=== PATIENT | male | born 1955 | race Caucasian/White ===

== ENCOUNTER → 2018-04-14 | Outpatient (CLI) | payer MEDICARE ==
--- NOTE | 2018-04-14 10:26 | XR ---
EXAMINATION TYPE: XR chest 2V DATE OF EXAM: 04/14/2018 COMPARISON: NONE TECHNIQUE: PA and lateral views submitted. HISTORY: Shortness of breath FINDINGS: The lungs are clear and there is no pneumothorax, pleural effusion, or focal pneumonia. Bilateral p leural-based thickening. No pneumothorax. Atherosclerotic change aorta. Right paratracheal soft tissu e thickening is present. Hypertrophic and degenerative change of the spine. No overt failure. IMPRESSION: 1. Bilateral pleural-based thickening with no evidence of interstitial edema or consolidative process . Right paratracheal soft tissue fullness could be related to ectatic vasculature. Recommend follow-u p CT of the chest.
== END | disposition home or self-care (01) ==
LOC: RADXRYALE 10:06
PROVIDERS: ATTEND Family Medicine
DX: J92.9 Pleural plaque without asbestos (principal)
CPT/HCPCS: 71046

== ENCOUNTER → 2018-04-21 | Outpatient (CLI) | payer MEDICARE ==
--- NOTE | 2018-04-21 12:53 | ECHOF ---
Referral Reason:R94.31Abnormal electrocardiogram [ECG] [EKG] MEASUREMENTS -------- HEIGHT: 180.3 cm WEIGHT: 149.7 kg BP: 152/70 RVIDd: 4.2 cm (< 3.3) IVSd: 1.6 cm (0.6 - 1.1) LVIDd: 5.8 cm (3.9 - 5.3) LVPWd: 1.3 cm (0.6 - 1.1) IVSs: 2.0 cm LVIDs: 3.7 cm LVPWs: 1.7 cm LA Diam: 3.9 cm (2.7 - 3.8) LAESV Index (A-L): 27.18 ml/m Ao Diam: 4.2 cm (2.0 - 3.7) AV Cusp: 2.5 cm (1.5 - 2.6) EPSS: 0.8 cm MV E Ezequiel: 0.79 m/s MV DecT: 319 ms MV A Ezequiel: 0.88 m/s MV E/A Ratio: 0.90 RAP: 5.00 mmHg RVSP: 32.41 mmHg MV EF SLOPE: 56.03 mm/s (70 - 150) MV EXCURSION: 1.62 cm (> 18.000) FINDINGS -------- Sinus rhythm with extra systolic beats. This was a technically difficult study with suboptimal views. The left ventricular size is normal. There is moderate concentric left ventricular hypertrophy. O verall left ventricular systolic function is normal with, an EF between 55 - 60 %. The right ventricle is severely enlarged. Normal LA size by volume 22+/-6 ml/m2. The right atrium is normal in size. 3 ml of Lumason was utilized for enhancement of images. There is moderate aortic valve sclerosis. Mild mitral annular calcification present. Mild tricuspid regurgitation present. Right ventricular systolic pressure is normal at < 35 mmHg. There is no pulmonic regurgitation present. The aortic root is dilated measuring 4.2cm. IVC Not well visulized. There is no pericardial effusion. CONCLUSIONS -------- 1. Sinus rhythm with extra systolic beats. 2. This was a technically difficult study with suboptimal views. 3. The left ventricular size is normal. 4. There is moderate concentric left ventricular hypertrophy. 5. Overall left ventricular systolic function is normal with, an EF between 55 - 60 %. 6. The right ventricle is severely enlarged. 7. Normal LA size by volume 22+/-6 ml/m2. 8. The right atrium is normal in size. 9. 3 ml of Lumason was utilized for enhancement of images. 10. There is moderate aortic valve sclerosis. 11. Mild mitral annular calcification present. 12. Mild tricuspid regurgitation present. 13. Right ventricular systolic pressure is normal at < 35 mmHg. 14. There is no pulmonic regurgitation present. 15. The aortic root is dilated measuring 4.2cm. 16. IVC Not well visulized. 17. There is no pericardial effusion. [employer] SUPERVISOR: OSMAN Birch
== END | disposition home or self-care (01) ==
LOC: RADECHMAIN 08:27
PROVIDERS: ATTEND Family Medicine
DX: I07.1 Rheumatic tricuspid insufficiency (principal); I11.9 Hypertensive heart disease without heart failure
CPT/HCPCS: C8929; Q9950; 93306

== ENCOUNTER → 2018-04-29 | Outpatient (CLI) | payer MEDICARE ==
--- NOTE | 2018-04-29 10:58 | CT ---
EXAMINATION TYPE: CT chest wo con DATE OF EXAM: 04/29/2018 COMPARISON: Chest x-ray April 14, 2018 HISTORY: Abnormal findings of lung. Abnormal x-ray. CT DLP: 638.9 mGycm. Automated Exposure Control for Dose Reduction was Utilized. TECHNIQUE: CT scan of the thorax is performed without IV contrast. FINDINGS: LUNGS: Areas of suspected pleural thickening on x-ray correspond to fat density extending deep to the intercostal margins on CT. No suspicious pleural effusion effusion or eccentric pleural thickening i s seen. There are some focal prominence of fat also along the left major fissure axial image 43 in th e anterior left lower lung. There is patchy left basilar linear scarring and/or atelectasis posterior ly. There is no suspicious parenchymal nodule or mass. No suspicious focal consolidation is seen. No pneumothorax is noted. Tracheobronchial tree is patent. MEDIASTINUM: Lack of IV contrast is noted to limit evaluation for mediastinal and especially hilar ad enopathy. There are no definitive greater than 1 cm hilar or mediastinal lymph nodes. No suspicious m ass or adenopathy right paratracheal region is seen to account for chest x-ray abnormality. Ectatic c ourse to the right brachiocephalic artery is noted. No cardiomegaly or pericardial effusion is seen. There is moderate coronary artery calcification which is noted risk factor for coronary artery diseas e. There is suspected stent in the distal left circumflex axial image 45. There is mild to moderate c alcified plaque of the aorta. OTHER: Small size hiatal hernia is present. Dependent small gallstone in gallbladder axial image 70. Mild fat replaced atrophy of head and uncinate process of pancreas. S-shaped scoliosis with moderate to severe multilevel spurring and disc space narrowing. There is suspected healing fracture of the an terolateral right fourth rib axial image 26. IMPRESSION: 1. No suspicious mass or adenopathy is seen to account for abnormal chest x-ray, ectatic vasculature is confirmed. 2. Suspected healing fracture anterolateral right fourth rib, correlate clinically.
== END | disposition home or self-care (01) ==
LOC: RADCTMAIN 07:36
PROVIDERS: ATTEND Family Medicine
DX: I77.89 Other specified disorders of arteries and arterioles (principal)
CPT/HCPCS: 71250

== ENCOUNTER → 2020-06-03 | Outpatient (CLI) | payer MEDICARE | END | disposition home or self-care (01) | LOC: LABWHC1 10:56 | PROVIDERS: ATTEND Internal Medicine Critical Care Medicine | DX: Z53.9 Procedure and treatment not carried out, unspecified reason (principal) ==

== ENCOUNTER → 2020-08-02 | Outpatient (CLI) | payer MEDICARE | END | disposition home or self-care (01) | LOC: CPPFTMAIN 10:30 | PROVIDERS: ATTEND Internal Medicine Critical Care Medicine | DX: J44.9 Chronic obstructive pulmonary disease, unspecified (principal) | CPT/HCPCS: 94060; 94726; 94729 ==

== ENCOUNTER → 2021-07-25 | Outpatient (CLI) | payer MEDICARE ==
--- NOTE | 2021-07-25 11:48 | XR ---
EXAMINATION TYPE: XR shoulder complete RT DATE OF EXAM: 07/25/2021 COMPARISON: NONE HISTORY: Pain TECHNIQUE: Three views are submitted. FINDINGS: The osseous structures are intact. There is no acute fracture or dislocation. Before meals joint art hropathy. IMPRESSION: 1. AC joint arthropathy.
== END | disposition home or self-care (01) ==
LOC: RADXRYALE 11:29
PROVIDERS: ATTEND Family Medicine
DX: M12.811 Other specific arthropathies, not elsewhere classified, right shoulder (principal)

== ENCOUNTER → 2022-08-14 | Outpatient (CLI) | payer MEDICARE ==
--- NOTE | 2022-08-14 09:11 | XR ---
EXAM TYPE: LUMBAR SPINE X RAY SERIES COMPARISON: NONE HISTORY: Pain TECHNIQUE: 3 views are submitted. FINDINGS: Diffuse osteopenia with scoliosis. There is severe degenerative disc disease at all levels. Exam limi velia due to motion. Anterolisthesis of L4 on L5 with multilevel facet arthropathy and foraminal encroa chment suspected. Assessment for fracture limited due to artifact and resolution. IMPRESSION: 1. Severe scoliosis with multilevel severe degenerative disc disease and grade 1 anterior listhesis 4 on L5. Multilevel foraminal encroachment suggested. Recommend MRI given limitation of the exam.
== END | disposition home or self-care (01) ==
LOC: RADXRYALE 08:41
PROVIDERS: ATTEND Family Medicine
DX: M47.817 Spondylosis without myelopathy or radiculopathy, lumbosacral region (principal)
CPT/HCPCS: 72100

== ENCOUNTER → 2023-06-10 | Outpatient (CLI) | payer MEDICARE ==
[2023-06-10 10:40] VITALS: BP 118/75; PULSE 57; RESP 16; TEMP 97.9
--- NOTE | 2023-06-10 14:41 | P.PAINPG ---
PQRS Measure Charge Sheet Comment: HISTORY OF PRESENT ILLNESS: 67 yr old male w at side as a referral from Dr Rice presents today w severe and chronic LBP secondary to post laminectomy syndrome for evaluation. Pt states pain level is provoked at 8 /10 in intensity, constant, localized in the R lumbar spine, sharp in character w shooting pain towards the R hip. Pain is provoked by walking for periods of 20 min or more. Pain is alleviated by PT x 4-6 wks in Jan 2023 after surgery, chiropractic treatments provoked pain, medications (Neurontin, Percocet), topical, heat & ice, sitting, repositioning and rest. Oswestry axial pain score at 30. PMH: OA, DM II, HTN PSH: L Knee replacement (2008), Cardiac Stent (2014), Lumbar Fusion (2022) SH: Negative x 3. . FH: Uncle - DM II. All: See list Meds: See list REVIEW OF ORGAN SYSTEMS: CONSTITUTIONAL: No fevers or chills. No recent weight loss. NEUROLOGICAL: + numbness and tingling along the distal extremities. No seizure disorders or headaches. MUSCULOSKELETAL: + pain PSYCHIATRIC: Denies current depression or suicidal thoughts. Physical Examinations : Constitutional : Cooperative , not in acute distress . Neurologic : Cranial nerve II to XII intact. No focal neurological deficits. Psychiatric : alert & oriented x 3. Matching mood & appropriate affect. Judgment & insight intact. Musculoskeletal : Cervical Spine Motor strength in the deltoid and biceps: Normal right side. Normal Left side Motor strength biceps and the wrist extensors: Normal right side . Normal left side Motor strength in the triceps muscle: Normal right side. Normal left side Deep tendon reflexes: Normal at the biceps. Normal at Brachioradialis. Normal at triceps Vertebral body tenderness to deep palpation over Cervical facet loading test: positive bilaterally Spurling test: positive bilaterally Neck distraction test: positive bilaterally Denise sign: positive bilaterally Lumbar spine Motor strength lower extremities ,thigh and legs 5/5 Right side , 5/5 Left side Deep tendon reflexes : Normal Knee Jerk. Normal Ankle Jerk Vertebral body tenderness over Recio Test positive Lumbar facet Loading Test: positive Right / positive Left Range of motion of the lumbar spine Flexion 30 degrees, extension 10 degrees Straight Leg Raise test: Left/ Right positive at degree Lyssa test: positive right / positive left. Severe tenderness over the Sacroiliac joint on the Right / Left sides Gaenslen test: positive bilaterally Seated flexion test: positive bilaterally. Sacral spine : Severe tenderness over the Sacroiliac joint: right side / left side Range of motion: Flexion of the lumbar spine <60 degrees Range of motion: Extension of the lumbar spine <20 degrees Gaenslen's Test positive on R Lyssa test: positive right side / left side Thigh Thrust Test Positive R Sacral Thrust Test Imaging: MRI noncontrast of the lumbar spine 03/14/23 reviewed Assessment/ Plan : Post laminectomy syndrome Recommendation of R SI injection. May need a series of injections for optimal pain relief. Risks, benefits of procedure discussed and patient verbalized un derstanding. Admits to aspirin or anti- coagulant use or medical history of diabetes. Protocol for discontinuation/ continuation of medications nikos procedure discussed. Minimal anesthesia provided, if clinically indicated, consisting of Versed and Fentanyl. All questions answered. I have spent greater than 30 minutes on patient care today. Dr Romano was available by phone for the evaluation of this patient. The time was used to review the medical records including relevant urine studies and Prescription history (MAPs), review of the available imaging, evaluation and examination of the patient, coordination of care with the medical staff and if applicable referring physicians, as well as creation of the medical record Home Medications: Ambulatory Orders Losartan/Hydrochlorothiazide [Losartan-Hctz 100-25 mg Tab] PO DAILY 06/10/23 Controlled Substance Measures - Controlled Substance Measures Is patient prescribed a controlled substance at discharge?: No
== END ==
LOC: PNWHC3 09:37
PROVIDERS: ATTEND Specialist
DX: M51.36 Other intervertebral disc degeneration, lumbar region (principal); M54.50 Low back pain, unspecified; M96.1 Postlaminectomy syndrome, not elsewhere classified; M19.90 Unspecified osteoarthritis, unspecified site; E11.9 Type 2 diabetes mellitus without complications; I10 Essential (primary) hypertension; Z79.82 Long term (current) use of aspirin
CPT/HCPCS: 99211

== ENCOUNTER 2023-06-27 11:33 | Day surgery (SDC) | payer MEDICARE ==
[~2023-06-27 11:33] MED LIST: LACTATED RINGERS 1,000 ML IV SCH
[2023-06-27 12:12] VITALS: RESP 16; TEMP 97.9
[2023-06-27 12:13] LABS: Glucose,Whole Blood 110 mg/dL (70-110)
[2023-06-27] MEDS ORDERED: ROPIVACAINE 5MG/ML 20ML VIAL ONE (12:15)
[2023-06-27] MEDS ORDERED: methylPREDNISolone ACETATE 40 MG/ML 1 ML VIAL ONE (12:15)
--- NOTE | 2023-06-27 12:22 | P.PCN ---
Date of Procedure: 06/27/23 Surgeon: Sandeep Atwood Pathology: none sent Condition: stable Disposition: PACU Description of Procedure: Preoperative diagnoses= sacroiliac joint dysfunction and sacroiliitis on the ri ght side Postoperative diagnoses= same as preoperative diagnosis. Procedure= sacroiliac joint steroid injection under fluoroscopic guidance. Anesthesia= local anesthesia with lidocaine 1% Estimated blood loss=minimal. Procedure indication= the patient had a history of severe chronic low back pain, diagnosed with sacroiliitis and lumbar sacral facet arthropathy unresponsive to conservative treatment. Procedure description= the patient was seen and identified in the preoperative holding area, risks and benefits and alternative of the procedure and possible complications discussed with the patient, patient signed the consent. an IV was started, and vital signs were monitored and were stable throughout the procedure, patient was placed in the prone position or table and the lumbosacral area was prepped and draped with a sterile fashion, vital signs were closely monitored during the procedure.The sacroiliac joint was identified on the AP view of fluoroscopy then the C-arm was tilted to the contralateral oblique position to superimpose the anterior and posterior joint lines on each other and to have a unified joint line with the target point at the inferior one third of this line. I used 22-gauge 3-1/2 inch Quincke spinal needle for this procedure and after getting into the sacroiliac joint I injected 40 mg of DepoMedrol +2 MLS of Ropivacaine 0.5%. Patient tolerated the procedure well without any complication, The patient returned to supine position after the back was cleaned and a Band- Aid applied, the patient transported to recovery room in stable condition and he was monitored for 30 minutes before she was discharged home in stable condition . patient will follow up with the pain clinic in a few weeks. A copy of the needle placement was saved to the C-arm machine.
[2023-06-27 12:48] VITALS: BP 119/65; PULSE 63
--- NOTE | 2023-06-27 13:03 | FL ---
Intraoperative/procedural fluoroscopic services were provided for right SI joint injection. Total flu oroscopy time is 12.6 seconds with a total of 1 submitted image to PACS. Total DAP [id number] ease see the operative note for further details.
== END 2023-06-27 12:49 | disposition home or self-care (01) ==
LOC: ORPAIN 11:33
PROVIDERS: ATTEND Anesthesiology
DX: M46.1 Sacroiliitis, not elsewhere classified (principal); E11.9 Type 2 diabetes mellitus without complications; E66.01 Morbid (severe) obesity due to excess calories; Z79.82 Long term (current) use of aspirin
CPT/HCPCS: 27096; J1030; J2795; G0260

== ENCOUNTER → 2023-07-16 | Outpatient (CLI) | payer MEDICARE ==
--- NOTE | 2023-07-17 08:37 | XR ---
EXAMINATION TYPE: XR ribs RT w pa chest xray DATE OF EXAM: 07/16/2023 COMPARISON: 04/14/2018 TECHNIQUE: PA and lateral views submitted. HISTORY: Pain FINDINGS: The lungs are clear and there is no pneumothorax, pleural effusion, or focal pneumonia. Heart size normal and no overt failure. Osseous structures demonstrate hypertrophic and degenerative changes of the spine. There are numerous rib deformities which appear to be chronic. Scoliotic curvature of the spine is seen with findings suggesting prior surgery. There appear to be mildly displaced fractures involving the right ninth, eighth, and seventh ribs. Co uld not exclude fractures of the fifth and sixth ribs. Pleural-based thickening is noted. Subsegmenta l changes involving the lungs are most typical of atelectasis. There is a hiatal hernia. IMPRESSION: 1. Multiple posterior rib fractures. New superimposed on a background of remote fractures. A Yellow level critical message alert has been initiated for Raulito Mills DO via the [employer] Critical Results System on 07/17/2023 8:34 AM. This message alert has been sent to Raulito baker DO via the preferences provided by the clinician for the receipt of Radiology Critical Findings. Message ID [id number].
== END | disposition home or self-care (01) ==
LOC: RADXRYALE 15:55
PROVIDERS: ATTEND Family Medicine
DX: S22.41XA Multiple fractures of ribs, right side, initial encounter for closed fracture (principal); S20.20XA Contusion of thorax, unspecified, initial encounter; X58.XXXA Exposure to other specified factors, initial encounter

== ENCOUNTER → 2023-07-17 | Outpatient (CLI) | payer MEDICARE ==
--- NOTE | 2023-07-17 10:26 | CT ---
EXAMINATION TYPE: CT chest wo con CT DLP: 1227 mGycm, Automated exposure control for dose reduction was used. DATE OF EXAM: 07/17/2023 10:13 AM COMPARISON: 04/29/2018 CLINICAL INDICATION:Male, 67 years old with history of [id number] CONTUSION OF THORAX; PHH, fall x few w eeks. Rt side broken ribs and pain TECHNIQUE: Multiple axial images were obtained through the chest. Sagittal and coronal reformats were created for review. Contrast used: mL of (None if empty) Oral contrast used: (None if empty) FINDINGS: LUNGS/ PLEURA: The lung parenchyma appears unremarkable. AIRWAY: Patent and unremarkable. HEART: Heart is mildly enlarged for size. There is moderate coronary artery calcifications. MEDIASTINUM: No gross evidence of adenopathy. VASCULATURE: No aortic aneurysm. MUSCULOSKELETAL: Partially visualized fixation hardware in the lower spine noted. Fractures of right ribs 3 through 9 wo specimen. No left rib fractures definitively visualized. SOFT TISSUES/LYMPH NODES: Unremarkable. LOWER NECK: No significant findings. UPPER ABDOMEN: Cholelithiasis. Small hiatal hernia. IMPRESSION: 1. Acute fractures of right ribs 3 through 9 without displacement. 2. Moderate multilevel degeneration changes with partially visualized fixation hardware. Hardware ap pears intact. 3. Moderate coronary artery cusp patient's. 4. Cholelithiasis. 5. Small hiatal hernia
== END | disposition home or self-care (01) ==
LOC: RADCTMAIN 09:35
PROVIDERS: ATTEND Family Medicine
DX: S20.20XA Contusion of thorax, unspecified, initial encounter (principal); K80.20 Calculus of gallbladder without cholecystitis without obstruction; K44.9 Diaphragmatic hernia without obstruction or gangrene; S22.41XA Multiple fractures of ribs, right side, initial encounter for closed fracture
CPT/HCPCS: 71250

== ENCOUNTER → 2023-08-07 | Outpatient (CLI) | payer MEDICARE ==
[2023-08-07 14:44] VITALS: BP 138/76; PULSE 53; RESP 16; TEMP 97.8
--- NOTE | 2023-08-07 14:44 | P.PAINPG ---
PQRS Measure Charge Sheet Comment: HISTORY OF PRESENT ILLNESS: 67 yr old male w at side presents today w severe and chronic LBP secondary to post laminectomy syndrome & R Sacroiliitis for evaluation s/p R SI injection. Pt states he experienced 100 % pain relief x 6 wks s/p procedure. Pt states pain level is provoked at 0 /10 in intensity. Pain is alleviated by injections, PT x 4-6 wks in Jan 2023 after surgery, chiropractic treatments provoked pain, medications, topical, heat & ice, sitting, repositioning and rest. Interventional procedures include R SI 1 Medications include Percocet, Neurontin REVIEW OF ORGAN SYSTEMS: CONSTITUTIONAL: No fevers or chills. No recent weight loss. NEUROLOGICAL: + numbness and tingling along the distal extremities. No seizure disorders or headaches. MUSCULOSKELETAL: + pain PSYCHIATRIC: Denies current depression or suicidal thoughts. Physical Examinations : Constitutional : Cooperative , not in acute distress . Neurologic : Cranial nerve II to XII intact. No focal neurological deficits. Psychiatric : alert & oriented x 3. Matching mood & appropriate affect. Judgment & insight intact. Musculoskeletal : Cervical Spine Motor strength in the deltoid and biceps: Normal right side. Normal Left side Motor strength biceps and the wrist extensors: Normal right side . Normal left side Motor strength in the triceps muscle: Normal right side. Normal left side Deep tendon reflexes: Normal at the biceps. Normal at Brachioradialis. Normal at triceps Vertebral body tenderness to deep palpation over Cervical facet loading test: positive bilaterally Spurling test: positive bilaterally Neck distraction test: positive bilaterally Denise sign: positive bilaterally Lumbar spine Motor strength lower extremities ,thigh and legs 5/5 Right side , 5/5 Left side Deep tendon reflexes : Normal Knee Jerk. Normal Ankle Jerk Vertebral body tenderness over Recio Test positive Lumbar facet Loading Test: positive Right / positive Left Range of motion of the lumbar spine Flexion 30 degrees, extension 10 degrees Straight Leg Raise test: Left/ Right positive at degree Lyssa test: positive right / positive left. Severe tenderness over the Sacroiliac joint on the Right / Left sides Gaenslen test: positive bilaterally Seated flexion test: positive bilaterally. Sacral spine : Severe tenderness over the Sacroiliac joint: right side / left side Range of motion: Flexion of the lumbar spine <60 degrees Range of motion: Extension of the lumbar spine <20 degrees Gaenslen's Test positive on R Lyssa test: positive right side / left side Thigh Thrust Test Positive R Sacral Thrust Test Imaging: MRI noncontrast of the lumbar spine 03/14/23 reviewed Assessment/ Plan : Post laminectomy syndrome, R Sacroiliitis Will manage residual pain and may return to clinic on an as needed basis. All questions answered. I have spent greater than 30 minutes on patient care today. Dr Romano was available by phone for the evaluation of this patient. The time was used to review the medical records including relevant urine studies and Prescription history (MAPs), review of the available imaging, evaluation and examination of the patient, coordination of care with the medical staff and if applicable referring physicians, as well as creation of the medical record PQRS Narrative: Hx Alcohol Use (MH) No Home Medications: Ambulatory Orders Aspirin [Adult Low Dose Aspirin EC] 81 mg PO 06/10/23 Atorvastatin [Lipitor] 80 mg PO HS 06/10/23 Celecoxib [CeleBREX] 200 mg PO DAILY 06/10/23 Citalopram Hydrobromide [CeleXA] 20 mg PO DAILY 06/10/23 Furosemide [Lasix] 20 mg PO DAILY 06/10/23 Gabapentin [Neurontin] 900 mg PO TID 06/10/23 Losartan/Hydrochlorothiazide [Losartan-Hctz 100-25 mg Tab] 1 tab PO DAILY 06/10/23 Multivitamin [Multivitamins Adult Gummies] 1 tab PO DAILY 06/10/23 Omeprazole 20 mg PO DAILY 06/10/23 Spironolactone 25 mg PO DAILY 06/10/23 Tamsulosin HCl [Flomax] 0.4 mg PO HS 06/10/23 Zinc Sulfate [Orazinc] 25 mg PO 06/10/23 oxyCODONE HCL [Roxicodone] 15 mg PO Q6H PRN 06/10/23 rOPINIRole HCL [Ropinirole HCl] 2 mg PO TID 06/10/23 Unk Fish Oil 1 tab PO DAILY 06/21/23 Unk Ozempic 0.5 mg SQ LIM 06/21/23 Controlled Substance Measures - Controlled Substance Measures Is patient prescribed a controlled substance at discharge?: No
== END ==
LOC: PNWHC3 13:49
PROVIDERS: ATTEND Specialist
DX: M96.1 Postlaminectomy syndrome, not elsewhere classified (principal); M46.1 Sacroiliitis, not elsewhere classified; Z79.82 Long term (current) use of aspirin; Z91.048 Other nonmedicinal substance allergy status
CPT/HCPCS: 99211

== ENCOUNTER → 2024-05-25 | Outpatient (CLI) | payer MEDICARE ==
[2024-05-25 11:22] VITALS: BP 140/65; PULSE 50; RESP 16
--- NOTE | 2024-05-25 15:03 | P.PAINPG ---
Objective - Vital Signs Vital signs: Vital Signs Temp Pulse 50 L 05/25/24 11:20 Resp 16 05/25/24 11:20 BP 140/65 05/25/24 11:20 Pulse Ox 95 05/25/24 11:20 FiO2 Intake & Output 05/24/24 05/25/24 05/25/24 18:59 06:59 18:59 Weight 136.078 kg PQRS Measure Charge Sheet Mode of Arrival: Ambulatory Comment: HISTORY OF PRESENT ILLNESS: A 68 yr old male w at side presents today w severe and chronic LBP > 1 yr secondary to post laminectomy syndrome & R Sacroiliitis for evaluation. Pt states pain level is provoked at 6 /10 in intensity, predominantly axial, sharp in character, constant w occasional radiation of pain down the R hip and RLE. Pain is provoked by over activity. Pain is alleviated by injections, PT x 4-6 wks in Jan 2023 after surgery, chiropractic treatments provoked pain, medicatio ns, topical, heat & ice, sitting, repositioning and rest. Oswestry axial pain score of 24. Interventional procedures include R SI 1 (2022) Medications include Percocet, Neurontin REVIEW OF ORGAN SYSTEMS: CONSTITUTIONAL: No fevers or chills. No recent weight loss. NEUROLOGICAL: + numbness and tingling along the distal extremities. No seizure disorders or headaches. MUSCULOSKELETAL: + pain PSYCHIATRIC: Denies current depression or suicidal thoughts. Physical Examinations : Constitutional : Cooperative , not in acute distress . Neurologic : Cranial nerve II to XII intact. No focal neurological deficits. Psychiatric : alert & oriented x 3. Matching mood & appropriate affect. Judgment & insight intact. Musculoskeletal : Cervical Spine Motor strength in the deltoid and biceps: Normal right side. Normal Left side Motor strength biceps and the wrist extensors: Normal right side . Normal left side Motor strength in the triceps muscle: Normal right side. Normal left side Deep tendon reflexes: Normal at the biceps. Normal at Brachioradialis. Normal at triceps Vertebral body tenderness to deep palpation over Cervical facet loading test: positive bilaterally Spurling test: positive bilaterally Neck distraction test: positive bilaterally Denise sign: positive bilaterally Lumbar spine Motor strength lower extremities ,thigh and legs 5/5 Right side , 5/5 Left side Deep tendon reflexes : Normal Knee Jerk. Normal Ankle Jerk Vertebral body tenderness over Recio Test positive Lumbar facet Loading Test: positive Right / positive Left Range of motion of the lumbar spine F lexion 30 degrees, extension 10 degrees Straight Leg Raise test: Left/ Right positive at degree Lyssa test: positive right / positive left. Severe tenderness over the Sacroiliac joint on the Right / Left sides Gaenslen test: positive bilaterally Seated flexion test: positive bilaterally. Sacral spine : Severe tenderness over the Sacroiliac joint: right side / left side Range of motion: Flexion of the lumbar spine <60 degrees Range of motion: Extension of the lumbar spine <20 degrees Gaenslen's Test positive on R Lyssa test: positive right side / left side Thigh Thrust Test Positive R Sacral Thrust Test Imaging: MRI noncontrast of the lumbar spine 03/14/23 reviewed Assessment/ Plan : Post laminectomy syndrome, R Sacroiliitis Recommendation of R SI injection #2. May need a series of injections for optimal pain relief. Risks, benefits of procedure discussed and pt verbalized understanding. All questions answered. I have spent greater than 30 minutes on patient care today. Dr Romano was available by phone for the evaluation of this patient. The time was used to review the medical records including relevant urine studies and Prescription history (MAPs), review of the available imaging, evaluation and examination of the patient, coordination of care with the medical staff and if applicable referring physicians, as well as creation of the medical record - Pain Location Right Hip Pharmacological Interventions: PRN Medication PQRS Narrative: Blood Pressure 140/65 Pain Intensity [Right Hip] 5 Scale Used Numeric (1 - 10) Hx Alcohol Use (MH) No Home Medications: Ambulatory Orders Aspirin [Adult Low Dose Aspirin EC] 81 mg PO 06/10/23 Atorvastatin [Lipitor] 80 mg PO HS 06/10/23 Celecoxib [CeleBREX] 200 mg PO DAILY 06/10/23 Citalopram Hydrobromide [CeleXA] 20 mg PO DAILY 06/10/23 Furosemide [Lasix] 20 mg PO DAILY 06/10/23 Gabapentin [Neurontin] 900 mg PO TID 06/10/23 Losartan/Hydrochlorothiazide [Losartan-Hctz 100-25 mg Tab] 1 tab PO DAILY 06/10/23 Multivitamin [Multivitamins Adult Gummies] 1 tab PO DAILY 06/10/23 Omeprazole 20 mg PO DAILY 06/10/23 Spironolactone 25 mg PO DAILY 06/10/23 Tamsulosin HCl [Flomax] 0.4 mg PO HS 06/10/23 Zinc Sulfate [Orazinc] 25 mg PO 06/10/23 oxyCODONE HCL [Roxicodone] 15 mg PO Q6H PRN 06/10/23 rOPINIRole HCL [Ropinirole HCl] 2 mg PO TID 06/10/23 Unk Fish Oil 1 tab PO DAILY 06/21/23 Unk Ozempic 0.5 mg SQ LIM 06/21/23 Controlled Substance Measures - Controlled Substance Measures Is patient prescribed a controlled substance at discharge?: No
== END ==
LOC: PNWHC3 11:00
PROVIDERS: ATTEND Specialist
DX: M46.1 Sacroiliitis, not elsewhere classified (principal); M96.1 Postlaminectomy syndrome, not elsewhere classified; Z91.048 Other nonmedicinal substance allergy status
CPT/HCPCS: 99211

== ENCOUNTER 2024-06-09 07:00 | Day surgery (SDC) | payer MEDICARE ==
[2024-06-05 15:31] VITALS: BMI 41.8
[2024-06-09] MEDS ORDERED: ROPIVACAINE 5MG/ML 20ML VIAL ONE (07:51)
[2024-06-09] MEDS ORDERED: TRIAMCINOLONE ACETONIDE 40 MG/ML 1 ML VIAL ONE (07:51)
--- NOTE | 2024-08-04 18:19 | FL ---
EXAMINATION TYPE: FL guided pain mgmt statistic COMPARISON: Pre Operative Images if available both CT/MRI or plain film CLINICAL INDICATION: Male, 68 years old with history of RIGHT SI JOINT INJ PAIN SERVICES; TECHNIQUE: FL guided pain mgmt statistic, multiple fluoroscopic images provided for procedure. Total fluoroscopy time: XX seconds minutes Total submitted images to PACS: 1 DAP: XX mGym2 Gycm2 uGym2 cGycm2 FINDINGS: Fluoroscopic images during injection for pain management demonstrate multilevel degeneration changes throughout the spine. No evidence for fracture. No acute process identified. IMPRESSION: 1. No evidence for intraoperative complication. 2. Please see the operative/procedural note for further details. [facility], , 08/04/2024 6:17 PM
== END 2024-06-09 08:45 | disposition home or self-care (01) ==
LOC: ORPAIN 07:00
PROVIDERS: ATTEND Anesthesiology
DX: M46.1 Sacroiliitis, not elsewhere classified (principal); Z91.09 Other allergy status, other than to drugs and biological substances
CPT/HCPCS: 27096

== ENCOUNTER → 2024-07-02 | Outpatient (CLI) | payer MEDICARE ==
--- NOTE | 2024-07-02 14:04 | XR ---
EXAMINATION TYPE: XR Hip Complete RT DATE OF EXAM: 07/02/2024 11:31 AM CLINICAL INDICATION: Male, 68 years old with history of [id number] RT HIP PAIN; [facility] COMPARISON: None. TECHNIQUE: XR Hip Complete RT; hip was examined in the frontal and lateral projections FINDINGS: No evidence for acute process, joint dislocation or significant soft tissue swelling. Osteo phyte formation of the superior acetabulum of the hip. There is mild joint space narrowing. IMPRESSION: 1. No evidence for acute process. 2. Mild hip osteoarthrosis.
== END | disposition home or self-care (01) ==
LOC: RADXRYALE 11:18
PROVIDERS: ATTEND Family Medicine
DX: M16.11 Unilateral primary osteoarthritis, right hip (principal)
CPT/HCPCS: 73502

== ENCOUNTER → 2024-07-02 | Outpatient (CLI) | payer MEDICARE ==
[2024-07-02 13:17] VITALS: BP 142/76; PULSE 74; RESP 16
--- NOTE | 2024-07-02 14:42 | P.PAINPG ---
PQRS Measure Charge Sheet Comment: HISTORY OF PRESENT ILLNESS: A 68 yr old male w at side presents today w severe and chronic LBP > 1 yr secondary to post L2-L5 laminectomy syndrome & R Sacroiliitis for evaluation s/p R SI injection #2. Pt states he experienced 50% pain relief x 3 wks s/p procedure. Pt states pain level is provoked at 7 /10 in intensity, predominantly axial, sharp in character, constant w occasional radiation of pain down the RLE. Pain is provoked by over activity. Pain is alleviated by injections, PT x 4-6 wks in Jan 2023 after surgery, physician guided HEP stretches daily since early May 2024, chiropractic treatments provoked pain, medications, topical, heat & ice, use of a cane for ambulatory assistance, repositioning and rest. Interventional procedures include R SI 2 (2022, 2023) Medications include Percocet, Neurontin REVIEW OF ORGAN SYSTEMS: CONSTITUTIONAL: No fevers or chills. No recent weight loss. NEUROLOGICAL: + numbness and tingling along the distal extremities. No seizure disorders or headaches. MUSCULOSKELETAL: + pain PSYCHIATRIC: Denies current depression or suicidal thoughts. Physical Examinations : Constitutional : Cooperative , not in acute distress . Neurologic : Cranial nerve II to XII intact. No focal neurological deficits. Psychiatric : alert & oriented x 3. Matching mood & appropriate affect. Judgment & insight intact. Musculoskeletal : Cervical Spine Motor strength in the deltoid and biceps: Normal right side. Normal Left side Motor strength biceps and the wrist extensors: Normal right side . Normal left side Motor strength in the triceps muscle: Normal right side. Normal left side Deep tendon reflexes: Normal at the biceps. Normal at Brachioradialis. Normal at triceps Vertebral body tenderness to deep palpa tion over Cervical facet loading test: positive bilaterally Spurling test: positive bilaterally Neck distraction test: positive bilaterally Denise sign: positive bilaterally Lumbar spine Motor strength lower extremities ,thigh and legs 5/5 Right side , 5/5 Left side Deep tendon reflexes : Normal Knee Jerk. Normal Ankle Jerk Vertebral body tenderness over L5 Recio Test positive R L4-L5, L5-S1 Lumbar facet Loading Test: positive Right / positive Left Range of motion of the lumbar spine Flexion 30 degrees, extension 10 degrees Straight Leg Raise test: Left/ Right positive at degree Lyssa test: positive right / positive left. Severe tenderness over the Sacroiliac joint on the Right / Left sides Gaenslen test: positive bilaterally Seated flexion test: positive bilaterally. Sacral spine : Severe tenderness over the Sacroiliac joint: right side / left side Range of motion: Flexion of the lumbar spine <60 degrees Range of motion: Extension of the lumbar spine <20 degrees Gaenslen's Test positive on R Lyssa test: positive right side / left side Thigh Thrust Test Positive R Sacral Thrust Test Imaging: MRI noncontrast of the lumbar spine 03/14/23 reviewed Assessment/ Plan : Post L2-L4 laminectomy syndrome, R Sacroiliitis Recommendation of R TFESI L4-L5, L5-S1 #2. Risks, benefits of procedure discussed and pt verbalized understanding. All questions answered. I have spent greater than 30 minutes on patient care today. Dr Romano was available by phone for the evaluation of this patient. The time was used to review the medical records including relevant urine studies and Prescription history (MAPs), review of the available imaging, evaluation and examination of the patient, coordination of care with the medical staff and if applicable referring physicians, as well as creation of the medical record PQRS Narrative: Hx Alcohol Use (MH) No Home Medications: Ambulatory Orders Aspirin [Adult Low Dose Aspirin EC] 81 mg PO QAM 06/10/23 Celecoxib [CeleBREX] 200 mg PO QAM 06/10/23 Citalopram Hydrobromide [CeleXA] 20 mg PO QAM 06/10/23 Furosemide [Lasix] 20 mg PO QAM 06/10/23 Gabapentin [Neurontin] 900 mg PO TID 06/10/23 Losartan/Hydrochlorothiazide [Losartan-Hctz 100-25 mg Tab] 1 tab PO QAM 06/10/23 Multivitamin [Multivitamins Adult Gummies] 1 tab PO QAM 06/10/23 Omeprazole 20 mg PO QAM 06/10/23 Spironolactone 25 mg PO QAM 06/10/23 Tamsulosin HCl [Flomax] 0.8 mg PO HS 06/10/23 Zinc Sulfate [Orazinc] 25 mg PO QAM 06/10/23 oxyCODONE HCL [Roxicodone] 15 mg PO Q6H PRN 06/10/23 rOPINIRole HCL [Ropinirole HCl] 2 mg PO TID 08/07/23 Unk Fish Oil 1 tab PO QAM 06/21/23 Unk Ozempic 1 mg SQ LIM 06/21/23 Controlled Substance Measures - Controlled Substance Measures Is patient prescribed a controlled substance at discharge?: No
== END ==
LOC: PNWHC3 12:48
PROVIDERS: ATTEND Specialist
DX: M46.1 Sacroiliitis, not elsewhere classified
CPT/HCPCS: 99211

== ENCOUNTER → 2024-07-28 | Outpatient (CLI) | payer MEDICARE ==
--- NOTE | 2024-07-28 09:19 | XR ---
EXAMINATION TYPE: XR hand complete LT DATE OF EXAM: 07/28/2024 COMPARISON: NONE HISTORY: Pain TECHNIQUE: Three views are submitted. FINDINGS: The osseous structures are intact. Moderate first MCP joint arthropathy. There is no acute fracture o r dislocation. Mild generalized demineralization. Negative ulnar variance and there is arthropathy o f the radioulnar joint. IMPRESSION: 1. Moderate first MCP joint arthropathy.. [facility], , 07/28/2024 9:16 AM
== END | disposition home or self-care (01) ==
LOC: RADXRYALE 08:42
PROVIDERS: ATTEND Family Medicine
DX: M19.042 Primary osteoarthritis, left hand (principal)

== ENCOUNTER 2024-08-04 12:10 | Day surgery (SDC) | payer MEDICARE ==
[2024-07-30 10:58] VITALS: BMI 40.4
[2024-08-04 12:41] VITALS: RESP 16; TEMP 98
[2024-08-04 12:50] LABS: Glucose,Whole Blood 96 mg/dL (70-110)
[2024-08-04] MEDS ORDERED: DEXAMETHASONE SOD PHOSPHATE 10 MG/ML 1 ML VIAL ONE (13:11)
[2024-08-04] MEDS ORDERED: IOPAMIDOL M200 10 ML VIAL ONE (13:11)
--- NOTE | 2024-08-04 13:34 | P.PCN ---
Date of Procedure: 08/04/24 Description of Procedure: PREOPERATIVE DIAGNOSIS: Lumbar radiculopathy, and lumbar postlaminectomy syndrome. POSTOPERATIVE DIAGNOSIS: Lumbar radiculopathy and lumbar postlaminectomy syndrome. PROCEDURE: 1) right side L4-L5, and L5-S1 Transforaminal /selective nerve root injection under fluoroscopic guidance , 2) Epidurogram SURGEON: Simon Mohan [employer]: None ANESTHESIA: Local , and IV sedationas: None EBL: None. 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 Came here for repeat procedure. PROCEDURE DESCRIPTION: The patient was seen and identified in the preoperative area. Risks, benefits, complications, and alternatives were discussed with the patient. The patient agreed to proceed with the procedure and signed the consent. IV was started, and vital signs were stable. Patient was taken to the OR and time out was completed. The patient was placed in the prone position on procedure table and a pillow was placed under the abdomen to reduce lumbar lordosis. The lumbosacral area was prepped with ChloraPrep 1 and draped in the usual sterile fashion. Critical pause was taken. Vital signs were closely monitored during the procedure. Using 20 degree ipsilateral oblique fluoroscopy, the chin of the Josh dog of L4, and L5 was identified, and the skin and deeper tissues just below was localized with 1% lidocaine. 22-guage 5-inch spinal needle was used for the procedure. The needle was guided by fluoroscopy just underneath the chin of the Josh dog of L5. Under AP fluoroscopy, the needle was advanced to the 6 o'clock position of the L5 pedicle , in lateral view the tip of the needle position conformed. After negative aspiration of CSF and blood and with no paresthesias, 1 mL of Isovue-200 contrast dye was injected at each level with spread along the selective nerve root and outlining of the L5, L4 nerve roots, unable to see the spread along the epidural space, as it is hard to advance due to poor visualization/osteophytes. 3 mL of block solution was injected. Block solution contained 10 mg of dexamethasone mixed with 5 mL of preservative-free normal saline. Needle was removed intact, skin was cleansed, and bandages were applied. COMPLICATIONS: None. DISPOSITION : The patient was placed in a supine position and transferred to the recovery area in a stable condition for observation and was discharged from the recovery room after meeting discharge criteria. Home discharge instructions given to the patient by the staff. The patient was reexamined prior to discharge. The patient will schedule follow-up in the clinic in 4 weeks' duration. In future plan to scheduled caudal epidural steroid injection disc ussed with patient.
[2024-08-04 14:00] VITALS: BP 151/71; PULSE 58
--- NOTE | 2024-08-04 17:02 | FL ---
EXAMINATION TYPE: FL guided pain mgmt statistic DATE OF EXAM: 08/04/2024 1:31 PM COMPARISON: Pre Operative Images if available both CT/MRI or plain film CLINICAL INDICATION: Male, 68 years old with history of M54.16; TECHNIQUE: FL guided pain mgmt statistic, multiple fluoroscopic images provided for procedure. Total fluoroscopy time: 35 seconds Total submitted images to PACS: 3 DAP: [id number] mGym2 Gycm2 uGym2 cGycm2 or equivalent. FINDINGS: Fluoroscopic images during injection for pain management demonstrate multilevel degeneration changes throughout the spine. No evidence for fracture. No acute process identified. IMPRESSION: 1. No evidence for intraoperative complication. 2. Please see the operative/procedural note for further details. [facility], , 08/04/2024 5:00 PM
== END 2024-08-04 14:11 | disposition home or self-care (01) ==
LOC: ORPAIN 12:10
DX: M54.16 Radiculopathy, lumbar region
CPT/HCPCS: 64483

== ENCOUNTER → 2024-08-19 | Outpatient (CLI) | payer MEDICARE ==
[2024-08-19 13:43] VITALS: BP 180/68; PULSE 53; RESP 16
--- NOTE | 2024-08-19 14:43 | P.PAINPG ---
PQRS Measure Charge Sheet Comment: HISTORY OF PRESENT ILLNESS: A 68 yr old male w at side presents today w severe and chronic LBP > 1 yr secondary to post L2-L5 laminectomy syndrome & R Sacroiliitis for evaluation s/p R TFESI L4-L5, L5-S1 #2. Pt states he experienced 95% pain relief x 2 wks s/p procedure. Pt states pain level is provoked at 7 /10 in intensity, predominantly axial, sharp in character, intermittent w occasional radiation of pain down the RLE. Pain is provoked by over activity. Pain is alleviated by injections, PT x 4-6 wks in Jan 2023 after surgery, physician guided HEP stretches daily since early May 2024, chiropractic treatments provoked pain, medications, topical, heat & ice, use of a cane for ambulatory assistance, repositioning and rest. Interventional procedures include R SI 2 (2022, 2023) Medications include Percocet, Neurontin REVIEW OF ORGAN SYSTEMS: CONSTITUTIONAL: No fevers or chills. No recent weight loss. NEUROLOGICAL: + numbness and tingling along the distal extremities. No seizure disorders or headaches. MUSCULOSKELETAL: + pain PSYCHIATRIC: Denies current depression or suicidal thoughts. Physical Examinations : Constitutional : Cooperative , not in acute distress . Neurologic : Cranial nerve II to XII intact. No focal neurological deficits. Psychiatric : alert & oriented x 3. Matching mood & appropriate affect. Judgment & insight intact. Musculoskeletal : Cervical Spine Motor strength in the deltoid and biceps: Normal right side. Normal Left side Motor strength biceps and the wrist extensors: Normal right side . Normal left side Motor strength in the triceps muscle: Normal right side. Normal left side Deep tendon reflexes: Normal at the biceps. Normal at Brachioradialis. Normal at triceps Vertebral body tenderness to deep palpation over Cervical facet loading test: positive bilaterally Spurling test: positive bilaterally Neck distraction test: positive bilaterally Denise sign: positive bilaterally Lumbar spine Motor strength lower extremities ,thigh and legs 5/5 Right side , 5/5 Left side Deep tendon reflexes : Normal Knee Jerk. Normal Ankle Jerk Vertebral body tenderness over L5 Recio Test positive R L4-L5, L5-S1 Lumbar facet Loading Test: positive Right / positive Left Range of motion of the lumbar spine Flexion 30 degrees, extension 10 degrees Straight Leg Raise test: Left/ Right positive at degree Lyssa test: positive right / positive left. Severe tenderness over the Sacroiliac joint on the Right / Left sides Gaenslen test: positive bilaterally Seated flexion test: positive bilaterally. Sacral spine : Severe tenderness over the Sacroiliac joint: right side / left side Range of motion: Flexion of the lumbar spine <60 degrees Range of motion: Extension of the lumbar spine <20 degrees Gaenslen's Test positive on R Lyssa test: positive right side / left side Thigh Thrust Test Positive R Sacral Thrust Test Imaging: MRI noncontrast of the lumbar spine 03/14/23 reviewed Assessment/ Plan : Post L2-L4 laminectomy syndrome, R Sacroiliitis Recommendation of Caudal CHARI w Lysis if pain is persistent. All questions answered. I have spent greater than 30 minutes on patient care today. Dr Romano was available by phone for the evaluation of this patient. The time was used to review the medical records including relevant urine studies and Prescription history (MAPs), review of the available imaging, evaluation and examination of the patient, coordination of care with the medical staff and if applicable referring physicians, as well as creation of the medical record PQRS Narrative: Hx Alcohol Use (MH) No Home Medications: Ambulatory Orders Aspirin [Adult Low Dose Aspirin EC] 81 mg PO QAM 06/10/23 Celecoxib [CeleBREX] 200 mg PO QAM 06/10/23 Citalopram Hydrobromide [CeleXA] 20 mg PO QAM 06/10/23 Furosemide [Lasix] 20 mg PO QAM 06/10/23 Gabapentin [Neurontin] 900 mg PO TID 06/10/23 Losartan/Hydrochlorothiazide [Losartan-Hctz 100-25 mg Tab] 1 tab PO QAM 06/10/23 Multivitamin [Multivitamins Adult Gummies] 1 tab PO QAM 06/10/23 Omeprazole 20 mg PO QAM 06/10/23 Spironolactone 25 mg PO QAM 06/10/23 Tamsulosin HCl [Flomax] 0.8 mg PO HS 06/10/23 Zinc Sulfate [Orazinc] 25 mg PO QAM 06/10/23 oxyCODONE HCL [Roxicodone] 15 mg PO Q6H PRN 06/10/23 rOPINIRole HCL [Ropinirole HCl] 2 mg PO TID 06/10/23 Unk Fish Oil 1 tab PO QAM 06/21/23 Semaglutide [Ozempic] 1 mg SQ LIM 07/30/24 Controlled Substance Measures - Controlled Substance Measures Is patient prescribed a controlled substance at discharge?: No
== END ==
LOC: PNWHC3 12:50
PROVIDERS: ATTEND Specialist
DX: M54.16 Radiculopathy, lumbar region
CPT/HCPCS: 99211